=== PATIENT | male | born 1965 | race Caucasian/White ===

== ENCOUNTER 2016-06-01 22:18 | Inpatient (IN) | payer OTHER ==
[~2016-06-01] VITALS: Ht 182.9 cm; Wt 75.4 kg
[~2016-06-01 22:18] MED LIST: AMLO2.5T PO; CFTR1PB IV; FOLI1TAB9 PO; IBUP-1773 PO; IBUP-30 PO; LORA0.5T PO; NCT21TD TD; OXYC-465 PO; PANT40TA3 PO; SIMV10TA3 PO
--- OUTSIDE RECORDS SUMMARY | 2016-06-01 22:24 | XMS REPORT | Continuity of Care Document ---
Author Author [facility] Organization [facility] Address Unknown Phone Unavailable Care Team Providers Care Computer Application Developer Name Role Phone NO, LOCAL PHYSICIAN PCP Unavailable Insurance Providers Payer Name Policy Number Subscriber Name Relationship Self Pay Fin Licensed Occupational Therapist Review [id number] Mya Kim 17 Self / Same As Patient Advance Directives Directive Response Recorded Date/Time Advance Directives No 07/30/15 9:04pm Health Care Power of Geographic Information Systems Analyst No 07/30/15 9:04pm Organ Donor Yes 07/30/15 9:04pm Resuscitation Status Full Code 07/30/15 9:04pm Problems Active Problems Medical Problem Onset Date Status Alcohol dependence Unknown Acute Chest pain Unknown Acute Medications Current Home Medications Medication Dose Units Route Directions Days/Qty Instructions Start Date Folic Acid/Mv,Fe,Other Min 1 Each 2 Tab.chew Oral Daily 07/31/15 Simvastatin 10 Mg 10 Mg Oral Bedtime 30 08/02/15 Amlodipine Besylate 2.5 Mg 2.5 Mg Oral Twice A Day 60 08/02/15 Ibuprofen 600 Mg 600 Mg Oral Give Every 8 Hrs On Schedule 90 08/02/15 Oxycodone Hcl/Acetaminophen 1 Each 1 Tab Oral Every 12 Hours as needed for Pain 30 08/02/15 Lorazepam 0.5 Mg 0.5 Mg Oral Every 12 Hours as needed for Anxiety 60 08/02/15 Pantoprazole Sodium 40 Mg 40 Mg Oral Daily@0700 30 08/02/15 Nicotine 1 Each 21 Mg Transderm Daily@0900 30 08/02/15 Past Home Medications Medication Directions Ordered Status Ibuprofen 200 Mg Tablet, 600-800 Mg Oral Three Times A Day as needed for Pain 07/31/15 Discontinued Social History Social History Problem Response Recorded Date/Time Alcohol Use Regular Use 07/30/2015 9:04pm Recreational Drug Use N 5-6 drinks daily, amyl nitrate use 07/30/2015 9:04pm Recent Foreign Travel No 07/30/2015 9:04pm Recent Infectious Disease Exposure No 07/30/2015 9:04pm Hospitalization with Isolation Denies 08/02/2015 4:03pm Sexually Transmitted Disease No 07/30/2015 9:04pm HIV/AIDS No 07/30/2015 9:04pm Smoking Status Current Everyday Smoker 07/30/2015 9:04pm Query Response Start Date Stop Date Smoking Status Current Everyday Smoker Hospital Discharge Instructions Patient Instructions Physician Instructions Patient Instructions: Follow up with Dr Choi next week Follow up with Family Physician within one week No smoking Care Plan Patient Instructions:: Follow up with Dr Choi next weekFollow up with Family Physician within one weekNo smoking Plan of Care Discharge Date 08/02/15 3:10pm Instructions/Education Provided Chest Pain (DC) Prescriptions See Medication Section Functional Status Query Response Date Recorded Patient Orientation Person Place Time Situation Normal For Age August 02, 2015 4:03pm Comprehension Ability Understands Concepts August 02, 2015 8:40am Allergies, Adverse Reactions, Alerts No known allergies. Immunizations No immunization records. Vital Signs Acute Vital Signs Vital Response Date/Time Temperature (Fahrenheit) 97.7 degrees F (97.6 - 99.5) 08/02/2015 3:10pm Temperature (Calculated Celsius) 36.60414 degrees C (36.4 - 37.5) 08/02/2015 8:40am Temperature Source Tympanic 08/02/2015 3:10pm Pulse Rate (adult) 82 bpm (60 - 90) 08/02/2015 3:10pm Respiratory Rate 18 bpm (12 - 24) 08/02/2015 3:10pm O2 Sat by Pulse Oximetry 96 % (88 - 100) 08/02/2015 3:10pm Blood Pressure 129/73 mm Hg 08/02/2015 3:10pm Blood Pressure Mean 91 mm Hg 08/02/2015 12:00pm Pain Pain Intensity 0 08/02/2015 12:05pm Height (Feet) 6 feet 07/30/2015 9:04pm Height (Inches) 0.00 inches 07/30/2015 9:04pm Height (Calculated Centimeters) 182.847201 cm 07/30/2015 9:04pm Weight (Pounds) 168 pounds 08/02/2015 6:00am Weight (Ounces) 3.0 oz 08/02/2015 6:00am Weight (Calculated Grams) 90575.567 gm 08/02/2015 6:00am Weight (Calculated Kilograms) 76.109486 kilograms 08/02/2015 6:00am Calculated BMI 22.7 07/30/2015 9:04pm Results Laboratory Results Test Name Result Units Flags Reference Collection Date/Time Result Date/ Time Comments White Blood Count 10.6 10^3/uL 4.3-11.0 08/01/2015 4:35am 08/01/2015 4: 48am Red Blood Count 4.28 10^6/uL L 4.35-5.85 08/01/2015 4:35am 08/01/2015 4: 48am Hemoglobin 14.5 G/DL 13.3-17.7 08/01/2015 4:35am 08/01/2015 4:48am Hematocrit 41 % 40-54 08/01/2015 4:35am 08/01/2015 4:48am Mean Corpuscular Volume 95 FL 80-99 08/01/2015 4:35am 08/01/2015 4: 48am Mean Corpuscular Hemoglobin 34 PG 25-34 08/01/2015 4:35am 08/01/2015 4: 48am Mean Corpuscular Hemoglobin Concent 36 G/DL 32-36 08/01/2015 4:35am 08/2015 4:48am Red Cell Distribution Width 12.7 % 10.0-14.5 08/01/2015 4:35am 2015 4:48am Platelet Count 163 10^3/uL 130-400 08/01/2015 4:35am 08/01/2015 4:48am Mean Platelet Volume 10.5 FL H 7.4-10.4 08/01/2015 4:35am 08/01/2015 4: 48am Neutrophils (%) (Auto) 47 % 42-75 07/31/2015 5:05am 07/31/2015 5:45am Lymphocytes (%) (Auto) 43 % 12-44 07/31/2015 5:0507/31/2015 5:45am Monocytes (%) (Auto) 8 % 0-12 07/31/2015 5:05am 07/31/2015 5:45am Eosinophils (%) (Auto) 2 % 0-10 07/31/2015 5:05am 07/31/2015 5:45am Basophils (%) (Auto) 0 % 0-10 07/31/2015 5:05am 07/31/2015 5:45am Neutrophils # (Auto) 3.5 X 10^3 1.8-7.8 07/31/2015 5:05am 07/31/2015 5: 45am Lymphocytes # (Auto) 3.2 X 10^3 1.0-4.0 07/31/2015 5:05am 07/31/2015 5: 45am Monocytes # (Auto) 0.6 X 10^3 0.0-1.0 07/31/2015 5:05am 07/31/2015 5: 45am Eosinophils # (Auto) 0.1 10^3/uL 0.0-0.3 07/31/2015 5:05am 07/31/2015 5 :45am Basophils # (Auto) 0.0 10^3/uL 0.0-0.1 07/31/2015 5:05am 07/31/2015 5: 45am Erythrocyte Sedimentation Rate 6 MM/HR 0-30 07/30/2015 7:05pm 2015 7:50pm Prothrombin Time 12.1 SEC L 12.2-14.7 07/30/2015 7:05pm 07/30/2015 7: 27pm INR Comment 0.9 0.8-1.4 07/30/2015 7:05pm 07/30/2015 7:27pm INTERPRETIVE DATA SUGGESTED THERAPEUTIC RANGE FOR INR'S: VENOUS THROMBOSIS, PULMONARY EMBOLISM, OR PREVENTION OF SYSTEMIC EMBOLISM (EG. IN ATRIAL FIBRILLATION): 2.0 - 3.0 MECHANICAL PROSTHETIC HEART VALVES: 2.5 - 3.5* *NOTE: INR'S UP TO 4.5 MAY BE NECESSARY IN SELECTED GROUPS OF HIGH RISK PATIENTS. [employer] CONSENSUS CONFERENCE ON ANTITHROMBOTIC THERAPY (2000). Activated Partial Thromboplast Time 26 SEC 24-35 07/30/2015 7:05pm 06/2015 7:27pm D-Dimer < 0.27 UG/ML 0.00-0.49 07/30/2015 7:05pm 07/30/2015 7:31pm Sodium Level 139 MMOL/L 135-145 08/01/2015 4:35am 08/01/2015 5:34am Potassium Level 3.9 MMOL/L 3.6-5.0 08/01/2015 4:35am 08/01/2015 5:34am Chloride Level 106 MMOL/L 98-107 08/01/2015 4:35am 08/01/2015 5:34am Carbon Dioxide Level 25 MMOL/L 21-32 08/01/2015 4:35am 08/01/2015 5: 34am Anion Gap 8 MMOL/L 5-14 08/01/2015 4:35am 08/01/2015 5:34am Blood Urea Nitrogen 11 MG/DL 7-18 08/01/2015 4:35am 08/01/2015 5:34am Creatinine 0.81 MG/DL 0.60-1.30 08/01/2015 4:35am 08/01/2015 5:34am BUN/Creatinine Ratio 14 08/01/2015 4:35am 08/01/2015 5:34am Estimat Glomerular Filtration Rate > 60 08/01/2015 4:35am 2015 5:34am GFR INTERPRETIVE DATA UNITS FOR ESTIMATED GFR (eGFR): mL/min/1.73 M2 REFERENCE RANGE FOR ESTIMATED GFR (eGFR) eGFR NORMAL eGFR >60 MODERATELY DECREASED eGFR 30-59 SEVERLY DECREASED eGFR 15-29 KIDNEY FAILURE <15 (OR DIALYSIS) Glucose Level 112 MG/DL H 70-105 08/01/2015 4:35am 08/01/2015 5:34am Calcium Level 8.9 MG/DL 8.5-10.1 08/01/2015 4:35am 08/01/2015 5:34am Magnesium Level 2.2 MG/DL 1.8-2.4 07/31/2015 5:0507/31/2015 6:04am Total Bilirubin 1.0 MG/DL 0.1-1.0 07/31/2015 5:05am 07/31/2015 6:04am Alkaline Phosphatase 62 U/L 40-136 07/31/2015 5:05am 07/31/2015 6:04am Aspartate Amino Transf (AST/SGOT) 33 U/L 5-34 07/31/2015 5:05am 2015 6:04am Alanine Aminotransferase (ALT/SGPT) 29 U/L 0-55 07/31/2015 5:05am 07/30 6:04am Troponin I 1.36 NG/ML CH <0.30 07/31/2015 5:05am 07/31/2015 6:33am RESULT CALLED TO DANIELA AT 0631. RESULTS READ BACK: YES. Troponin I < 0.30 NG/ML <0.30 07/30/2015 7:05pm 07/30/2015 7:45pm Myoglobin 36.7 NG/ML 10.0-92.0 07/30/2015 7:05pm 07/30/2015 7:45pm Total Protein 6.2 G/DL L 6.4-8.2 07/31/2015 5:05am 07/31/2015 6:04am Albumin 3.9 G/DL 3.2-4.5 07/31/2015 5:05am 07/31/2015 6:04am Triglycerides Level 122 MG/DL <150 07/31/2015 5:05am 07/31/2015 6:04am Cholesterol Level 158 MG/DL < 200 07/31/2015 5:05am 07/31/2015 6:04am HDL Cholesterol 58 MG/DL 40-60 07/31/2015 5:05am 07/31/2015 6:04am LDL Cholesterol Direct 88 MG/DL 1-129 07/31/2015 5:05am 07/31/2015 6: 04am VLDL Cholesterol 24 MG/DL 5-40 07/31/2015 5:05am 07/31/2015 6:04am Lipase 42 U/L 8-78 07/30/2015 7:05pm 07/30/2015 7:45pm Thyroid Stimulating Hormone (TSH) 2.98 UIU/ML 0.35-4.94 07/31/2015 5: 05am 07/31/2015 6:37am C-Reactive Protein High Sensitivity 3.39 MG/DL H 0.00-0.50 07/30/2015 7: 05pm 07/30/2015 7:46pm Procedures Procedure Status Date Provider(s) Tracing only of electrocardiogram Completed 07/30/15 JEANE LIMA MD Tracing only of electrocardiogram Completed 07/30/15 JEANE LIMA MD Tracing only of electrocardiogram Completed 07/30/15 FAZAL CHOI MD [facility] Color Doppler echocardiography Active 07/30/[facility] Tracing only of electrocardiogram Completed 07/31/15 FAZAL CHOI MD [facility] Encounters Encounter Location Arrival/Admit Date Discharge/Depart Date Attending Provider Departed [facility] 07/30/15 7:26pm 3:10pm FAZAL CHOI [facility] Recent Diagnosis Alcohol dependence Chest pain
[2016-06-01] MEDS ORDERED: NS IV 1000 ML 1,000 ML ONE (22:44)
[2016-06-01 22:49] LABS: BASOPHILS % (AUTO) 0 % (0-10); EOSINOPHILS # (AUTO) 0.1 10^3/uL (0.0-0.3); EOSINOPHILS % (AUTO) 1 % (0-10); LYMPHOCYTES # (AUTO) 2.6 X 10^3 (1.0-4.0); LYMPHOCYTES % (AUTO) 17 % (12-44); MEAN CORPUSCULAR HEMOGLOBIN 33 PG (25-34); MEAN CORPUSCULAR HGB CONC 35 G/DL (32-36); MEAN CORPUSCULAR VOLUME 94 FL (80-99); MONOCYTES # (AUTO) 1.6 X 10^3 (0.0-1.0); MONOCYTES % (AUTO) 10 % (0-12); NEUTROPHILS # (AUTO) 11.4 X 10^3 (1.8-7.8); NEUTROPHILS % (AUTO) 72 % (42-75); PLATELET COUNT 387 10^3/uL (130-400); RED CELL DISTRIBUTION WIDTH 12.8 % (10.0-14.5); WHITE BLOOD COUNT 15.7 10^3/uL (4.3-11.0)
[2016-06-01] MEDS ORDERED: NS IV 1000 ML 1,000 ML IV ONE (22:53)
[2016-06-01 22:58] LABS: PROTHROMBIN TIME PATIENT 12.9 SEC (12.2-14.7)
[2016-06-01] MEDS ORDERED: fentaNYL INJECTION 100 MCG/2 ML AMP IVP ONE (23:00)
[2016-06-01 23:03] LABS: BAND NEUTROPHILS 4 %; BASOPHILS % (MANUAL) 0 %; EOSINOPHILS % (MANUAL) 0 %; LYMPHOCYTES % (MANUAL) 21 %; NEUTROPHILS % (MANUAL) 65 %
[2016-06-01 23:07] LABS: ALANINE AMINOTRANSFERASE 37 U/L (0-55); ALBUMIN 3.9 G/DL (3.2-4.5); ANION GAP 13 MMOL/L (5-14); ASPARTATE AMINO TRANSFERASE 71 U/L (5-34); BILIRUBIN,TOTAL 0.7 MG/DL (0.1-1.0); BLOOD UREA NITROGEN 13 MG/DL (7-18); BUN/CREATININE RATIO 15; CALCIUM 9.3 MG/DL (8.5-10.1); CARBON DIOXIDE 21 MMOL/L (21-32); CHLORIDE 105 MMOL/L (98-107); CREATININE SERUM 0.87 MG/DL (0.60-1.30); GFR ESTIMATED > 60; GLUCOSE 116 MG/DL (70-105); POTASSIUM 3.9 MMOL/L (3.6-5.0); SODIUM 139 MMOL/L (135-145)
[2016-06-01 23:13] LABS: MYOGLOBIN SERUM 28.8 NG/ML (10.0-92.0)
--- NOTE | 2016-06-01 23:19 | ED Chest Pain ---
General Chief Complaint: Chest Pain Stated Complaint: NORMAN VELASQUEZ Nursing Triage Note: patient reports chest pain starting at 0330, pain goes to shoulders and jaws. Nursing Sepsis Screen: No Definite Risk Source: patient Exam Limitations: no limitations History of Present Illness Time seen by provider: 22:25 Initial Comments This 50-year-old gentleman presents to the emergency room with complaints of pain in the center of his chest that radiates to his back, neck, and jaw. Pain has actually been intermittent for a couple of weeks but more intense over the last 24 hours. The pain woke him up at about 03:30. The pain is exacerbated by palpation and inspiration. He has associated dyspnea on exertion. Review of his chart reveals a cardiac catheterization in July 2015 demonstrating mild coronary artery disease with up to 40 percent stenosis of the LAD. Ejection fraction was 60 percent. Patient is a smoker and drinks the equivalent of a bottle of wine daily. He denies any other drug use. Patient is rather anxious. Upon my entry into the room he is experiencing a hypotensive diaphoretic episode with the start of his IV. This seemed to be a vasovagal response to the IV start. He took ibuprofen at home which was not helpful. Allergies and Home Medications Allergies Coded Allergies: No Known Drug Allergies (Unverified , 07/30/15) Home Medications Amlodipine Besylate 2.5 Mg Tablet #60 2.5 MG PO BID Prescribed by: FAZAL CHOI on 08/02/15 1313 Ceftriaxone Sod 1 Gm/Vial Soln #5 1 GM IV DAILY Prescribed by: ORI FITCH on 08/28/15 1358 Folic Acid/Mv,Fe,Other Min 1 Each Tab.chew 2 TAB.CHEW PO DAILY (Reported) Ibuprofen 600 Mg Tablet #90 600 MG PO Q8HR Prescribed by: FAZAL CHOI on 08/02/15 1313 Lorazepam 0.5 Mg Tablet #60 0.5 MG PO Q12H PRN PRN ANXIETY Prescribed by: FAZAL CHOI on 08/02/15 1313 Nicotine 1 Each Patch.td24 #30 21 MG TD DAILY@0900 Prescribed by: FAZAL CHOI on 08/02/15 1317 Oxycodone HCl/Acetaminophen 1 Each Tablet #30 1 TAB PO Q12H PRN PRN PAIN Prescribed by: FAZAL CHOI on 08/02/15 1313 Pantoprazole Sodium 40 Mg Tablet.dr #30 40 MG PO DAILY@0700 Prescribed by: FAZAL CHOI on 08/02/15 1313 Simvastatin 10 Mg Tablet #30 10 MG PO HS Prescribed by: FAZAL CHOI on 08/02/15 1313 Review of Systems Constitutional: no symptoms reported EENTM: No Symptoms Reported Respiratory: See HPI Cardiovascular: See HPI Gastrointestinal: No Symptoms Reported Genitourinary: No Symptoms Reported Musculoskeletal: no symptoms reported Skin: no symptoms reported Psychiatric/Neurological: See HPI Endocrine: No Symptoms Reported Hematologic/Lymphatic: No Symptoms Reported Past Doclsmr-Czkysq-Jazjet Hx Patient Social History Alcohol Use: Denies Use Recreational Drug Use: No Smoking Status: Current Everyday Smoker Type Used: Cigarettes Recent Foreign Travel: No Contact w/Someone Who Travel: No Recent Infectious Disease Expo: No Recent Hopitalizations: No Seasonal Allergies Seasonal Allergies: No Surgeries HX Surgeries: Yes Surgeries: Cardiac, Orthopedic Respiratory Hx Respiratory Disorders: Yes (tobaccoism) Cardiovascular Hx Cardiac Disorders: Yes Cardiac Disorders: Coronary Artery Disease, Hypertension Neurological Hx Neurological Disorders: No Reproductive System Hx Reproductive Disorders: No Sexually Transmitted Disease: No HIV/AIDS: No Genitourinary Hx Genitourinary Disorders: No Gastrointestinal Hx Gastrointestinal Disorders: No Musculoskeletal Hx Musculoskeletal Disorders: No Endocrine Hx Endocrine Disorders: No HEENT HX ENT Disorders: No Cancer Hx Cancer: No Psychosocial Hx Psychiatric Problems: Yes (daily alcohol use) Behavioral Health Disorders: Anxiety Integumentary HX Skin/Integumentary Disorder: No Blood Transfusions Hx Blood Disorders: No Adverse Reaction to a Blood Tr: No Family Medical History Significant Family History: No Pertinent Family Hx Family Medial History: FH: cirrhosis Physical Exam Vital Signs Vital Sign - Last 12Hours 06/01/16 22:33 Temp 97.4 Pulse 100 Resp 24 B/P 143/102 Pulse Ox 96 O2 Delivery Room Air Capillary Refill : Less Than 3 Seconds General Appearance: WD/WN Mild Distress HEENT: PERRL/EOMI Normal ENT Inspection Neck: Normal Inspection Respiratory: Lungs Clear Normal Breath Sounds No Accessory Muscle Use No Respiratory Distress Other (left upper and lateral chest wall tender to palpation) Cardiovascular: Regular Rate, Rhythm No Edema No Murmur Gastrointestinal: Normal Bowel Sounds Non Tender Soft Extremity: Normal Inspection Non Tender No Pedal Edema Neurologic/Psychiatric: Alert Oriented x3 No 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 Other (anxious) Skin: Normal Color Diaphoresis Progress/Results/Core Measures Results/Orders Lab Results Laboratory Tests Test 06/01/16 22:40 06/02/16 00:40 Range/Units Activated Partial Thromboplast Time 29 24-35 SEC Alanine Aminotransferase (ALT/SGPT) 37 0-55 U/L Albumin 3.9 3.2-4.5 G/DL Alkaline Phosphatase 91 40-136 U/L Anion Gap 13 5-14 MMOL/L Aspartate Amino Transf (AST/SGOT) 71 H 5-34 U/L BUN/Creatinine Ratio 15 Band Neutrophils 4 % Basophils # (Auto) 0.0 0.0-0.1 10^3/uL Basophils % (Manual) 0 % Basophils (%) (Auto) 0 0-10 % Blood Morphology Comment NORMAL Blood Urea Nitrogen 13 7-18 MG/DL Calcium Level 9.3 8.5-10.1 MG/DL Carbon Dioxide Level 21 21-32 MMOL/L Chloride Level 105 98-107 MMOL/L Creatinine 0.87 0.60-1.30 MG/DL Eosinophils # (Auto) 0.1 0.0-0.3 10^3/uL Eosinophils % (Manual) 0 % Eosinophils (%) (Auto) 1 0-10 % Estimat Glomerular Filtration Rate > 60 Glucose Level 116 H 70-105 MG/DL Hematocrit 42 40-54 % Hemoglobin 14.9 13.3-17.7 G/DL INR Comment 1.0 0.8-1.4 Lymphocytes # (Auto) 2.6 1.0-4.0 X 10^3 Lymphocytes % (Manual) 21 % Lymphocytes (%) (Auto) 17 12-44 % Magnesium Level 2.0 1.8-2.4 MG/DL Mean Corpuscular Hemoglobin 33 25-34 PG Mean Corpuscular Hemoglobin Concent 35 32-36 G/DL Mean Corpuscular Volume 94 80-99 FL Mean Platelet Volume 9.0 7.4-10.4 FL Monocytes # (Auto) 1.6 H 0.0-1.0 X 10^3 Monocytes % (Manual) 10 % Monocytes (%) (Auto) 10 0-12 % Myoglobin 28.8 10.0-92.0 NG/ML Neutrophils # (Auto) 11.4 H 1.8-7.8 X 10^3 Neutrophils % (Manual) 65 % Neutrophils (%) (Auto) 72 42-75 % Platelet Count 387 130-400 10^3/uL Potassium Level 3.9 3.6-5.0 MMOL/L Prothrombin Time 12.9 12.2-14.7 SEC Red Blood Count 4.50 4.35-5.85 10^6/uL Red Cell Distribution Width 12.8 10.0-14.5 % Serum Alcohol < 10 <10 MG/DL Sodium Level 139 135-145 MMOL/L Total Bilirubin 0.7 0.1-1.0 MG/DL Total Protein 7.0 6.4-8.2 G/DL Troponin I < 0.30 <0.30 NG/ML White Blood Count 15.7 H 4.3-11.0 10^3/uL My Orders Orders-JEANE LIMA MD Ns Iv 1000 Ml (Sodium Chloride 0.9%) (06/01/16 22:44) Ct Angio Chest W (06/01/16 22:51) Fentanyl Injection (Sublimaze Injection (06/01/16 23:00) Alcohol (06/01/16 22:53) Drug Screen Stat (Urine) (06/01/16 22:53) Ns Iv 1000 Ml (Sodium Chloride 0.9%) (06/01/16 22:53) Iohexol Injection (Omnipaque 350 Mg/Ml 1 (06/01/16 23:30) Ns (Ivpb) (Sodium Chloride 0.9% Ivpb Bag (06/01/16 23:30) Ketorolac Injection (Toradol Injection) (06/02/16 00:15) Levofloxacin 750 Mg/150 Ml Iv (Levaquin (06/02/16 00:15) Blood Culture (06/02/16 00:28) Lactic Acid Analyzer (06/02/16 00:30) Medications Given in ED Current Medications Medications Dose Ordered Sig/Unique Route Start Time Stop Time Status Last Admin Dose Admin Fentanyl Citrate 50 mcg ONCE ONCE IVP 06/01/16 23:00 06/01/16 23:01 DC 06/01/16 22:59 50 MCG Iohexol 150 ml ONCE ONCE IV 06/01/16 23:30 06/01/16 23:31 DC 06/01/16 23:32 125 ML Ketorolac Tromethamine 30 mg 30 mg ONCE ONCE IVP 06/02/16 00:15 06/02/16 00:16 DC 06/02/16 00:20 30 MG Levofloxacin/ Dextrose 150 ml @ 100 mls/hr ONCE ONCE IV 06/02/16 00:15 06/02/16 01:44 06/02/16 00:46 100 MLS/HR Sodium Chloride 100 ml ONCE ONCE IV 06/01/16 23:30 06/01/16 23:31 DC 06/01/16 23:32 80 ML Sodium Chloride 1,000 ml STK-MED ONCE .ROUTE 06/01/16 22:44 06/01/16 22:46 DC 06/01/16 22:48 Vital Signs/I&O Vital Sign - Last 12Hours 06/01/16 22:33 Temp 97.4 Pulse 100 Resp 24 B/P 143/102 Pulse Ox 96 O2 Delivery Room Air Blood Pressure Mean: 116 Progress Note : Time: 00:31 Progress Note fentanyl was initially given for pain. Patient was sent to CT for angiogram of the chest. There was concern for pulmonary embolism or aortic pathology given the pleuritic nature of his pain and pain in his back. A left lower lobe pneumonia with effusion was noted on the CT images. Plan at that point was to administer a dose of Levaquin and discharged home as vital signs were stable. However, the Stat Rad reading of the CT scan also noted a pericardial effusion. This prompted a call to Dr. Choi who requested admission. Administration of Levaquin was promptly halted and blood cultures were collected along with a lactic acid. Toradol was administered for further pain management. ECG Initial ECG Impression Date: Jun 01, 2016 Initial ECG Impression Time: 22:25 Initial ECG Rate: 99 Initial ECG Rhythm: S.Tach Initial ECG Intervals: Normal Comment mild sinus tachycardia with no ST elevation or depression. No significant interval or axis changes. Diagnostic Imaging Diagonstic Imaging: Xray Plain Films/CT/US/NM/MRI: chest Comments chest x-ray viewed by me. Report not yet available. There are emphysematous changes. Left lower lobe atelectasis with effusion and/or infiltrate. Diagonstic Imaging: CT Plain Films/CT/US/NM/MRI: chest Comments CT angiogram of the chest viewed by me and Stat Rad report reviewed. No pulmonary emboli. Moderate pericardial effusion measuring 1.8 cm suggestive of peripheral enhancement suggesting complexity perhaps infectious/inflammatory. Skin there is small left trace right pleural effusion with subjacent compressive consolidative changes. Question coexistent infection. Mid lower lung linear scarring/atelectasis remote appearing left rib fracture. Departure Communication Communication Case was reviewed with Dr. De Souza who is agreeable to admission for treatment of pneumonia and observation of the cardiac status. Communication/Consulting Case was reviewed with Dr. Choi who would like to patient admitted. He requests scheduled ibuprofen and admission to the internal medicine service. Impression Impression: Primary Impression: Left lower lobe pneumonia Qualified Code: J18.1 - Lobar pneumonia, unspecified organism Additional Impressions: Atypical chest pain Pericardial effusion Alcohol dependence Qualified Code: F10.29 - Alcohol dependence with unspecified alcohol-induced disorder Disposition: ADMITTED INPATIENT Condition: Improved Decision to Admit Reason: Admit from ER (General) Decision to Admit/Date: Jun 02, 2016 Time/Decision to Admit Time: 12:30 Departure-Patient Inst. Referrals: NO,LOCAL PHYSICIAN (PCP/Family) Primary Care Physician JEANE LIMA MD Jun 01, 2016 23:19
[2016-06-01] MEDS ORDERED: NS 100 ML (IVPB) BAG IV ONE (23:30)
[2016-06-01] MEDS ORDERED: IOHEXOL 350 MG/ML 150 ML (OMNIPAQUE 350) VIAL IV ONE (23:30)
[2016-06-02] MEDS ORDERED: KETOROLAC 30 MG/ML VIAL IVP ONE (00:15)
[2016-06-02] MEDS: LEVOFLOXACIN 750 MG/150 ML IV 150 ML IV ONE ×2 (00:20→00:46)
[2016-06-02 01:37] VITALS: BP 125/77
[2016-06-02] MEDS ORDERED: HYDROcodone/APAP 5 MG/325 MG (LORTAB) TAB ONE (01:41)
[2016-06-02] MEDS ORDERED: RT-ALBUTEROL SULF 2.5 MG/3 ML PRE-MIX VIAL INH PRN (03:00)
[2016-06-02] MEDS: IBUPROFEN 600 MG (MOTRIN) TAB PO SCH ×4 (03:54→18:49)
[2016-06-02] MEDS ORDERED: LORazepam INJ 2 MG/ML (ATIVAN) VIAL IM PRN (04:00)
[2016-06-02] MEDS ORDERED: D5 1/2 NS 1000 ML IV SOLUTION 1,000 ML IV PRN (04:00)
[2016-06-02] MEDS ORDERED: ONDANSETRON 4 MG/2 ML (SDV) Z0FRAN IV PRN ×2 (04:00→04:15)
[2016-06-02] MEDS ORDERED: LORazepam INJ 2 MG/ML (ATIVAN) VIAL IV PRN ×4 (04:00→04:15)
[2016-06-02] MEDS ORDERED: LORazepam 0.5 MG (ATIVAN) TABLET PO PRN ×2 (04:00→11:15)
[2016-06-02] MEDS ORDERED: ANTACID SUSP 30 ML UDC (MYLANTA) PO PRN (04:15)
[2016-06-02] MEDS ORDERED: LORazepam 1 MG (ATIVAN) TAB PO PRN ×3 (04:15)
[2016-06-02] MEDS ORDERED: SENNA W/DOCUSATE (SENOKOT S) TABLET PO PRN (04:15)
[2016-06-02 04:39] VITALS: BP 116/71
[2016-06-02 05:02] LABS: BASOPHILS % (AUTO) 0 % (0-10); EOSINOPHILS % (AUTO) 0 % (0-10); LYMPHOCYTES # (AUTO) 1.5 X 10^3 (1.0-4.0); LYMPHOCYTES % (AUTO) 11 % (12-44); MEAN CORPUSCULAR HEMOGLOBIN 33 PG (25-34); MEAN CORPUSCULAR HGB CONC 35 G/DL (32-36); MEAN CORPUSCULAR VOLUME 96 FL (80-99); MEAN PLATELET VOLUME 9.3 FL (7.4-10.4); MONOCYTES # (AUTO) 1.3 X 10^3 (0.0-1.0); MONOCYTES % (AUTO) 10 % (0-12); NEUTROPHILS % (AUTO) 79 % (42-75); PLATELET COUNT 328 10^3/uL (130-400); RED BLOOD COUNT 4.09 10^6/uL (4.35-5.85); RED CELL DISTRIBUTION WIDTH 12.8 % (10.0-14.5); WHITE BLOOD COUNT 13.9 10^3/uL (4.3-11.0)
[2016-06-02 05:22] LABS: ALANINE AMINOTRANSFERASE 42 U/L (0-55); ALBUMIN 3.6 G/DL (3.2-4.5); ANION GAP 11 MMOL/L (5-14); ASPARTATE AMINO TRANSFERASE 62 U/L (5-34); BILIRUBIN,TOTAL 0.7 MG/DL (0.1-1.0); BLOOD UREA NITROGEN 10 MG/DL (7-18); BUN/CREATININE RATIO 13; CALCIUM 8.7 MG/DL (8.5-10.1); CARBON DIOXIDE 20 MMOL/L (21-32); CHLORIDE 108 MMOL/L (98-107); CREATININE SERUM 0.79 MG/DL (0.60-1.30); GFR ESTIMATED > 60; GLUCOSE 143 MG/DL (70-105); POTASSIUM 4.1 MMOL/L (3.6-5.0); SODIUM 139 MMOL/L (135-145); TOTAL PROTEIN 6.3 G/DL (6.4-8.2)
[2016-06-02 05:33] LABS: TROPONIN I < 0.30 NG/ML (<0.30)
[2016-06-02 05:57] LABS: CHOLESTEROL 130 MG/DL (< 200); DIRECT LDL 61 MG/DL (1-129); TRIGLYCERIDES 61 MG/DL (<150); VLDL CHOLESTEROL 12 MG/DL (5-40)
[2016-06-02] MEDS: MULTIVIT W/MINERALS TAB (THERAGRAN M) PO SCH (06:20)
[2016-06-02] MEDS: PANTOPRAZOLE 40 MG (PROTONIX) TAB PO SCH (06:20)
[2016-06-02] MEDS: THIAMINE 100 MG (VITAMIN B-1) TAB PO SCH (06:20)
--- NOTE | 2016-06-02 07:02 | Diagnostic Imaging Report ---
INDICATION: Chest pain. FINDINGS: There is minimal linear density in the left lung base with blunting of left costophrenic angle. Left lung is otherwise clear. The right lung is clear. Right costophrenic angle is sharp. The heart is not enlarged. No hilar adenopathy. No pneumothorax. IMPRESSION: Finding consistent with small left basilar pleural effusion with left basilar atelectasis and/or infiltrate. Dictated by: Dictated on workstation # [id number]
[2016-06-02] MEDS ORDERED: FLU TRIvalent (5 YOA+) 2016-17 (AFLURIA) 0.5 ML IM ONE (07:15)
--- NOTE | 2016-06-02 07:42 | Diagnostic Imaging Report ---
PROCEDURE: CT angiography of the chest with contrast. TECHNIQUE: Multiple contiguous axial images were obtained through the chest after uneventful bolus administration of intravenous contrast. Reconstructed CTA MIP acquisitions were also performed. INDICATION: Chest pain. FINDINGS: Good opacification of the aorta and pulmonary arteries. No evidence of aortic aneurysm or dissection. There are no filling defects to indicate pulmonary emboli. Small bilateral pleural effusions are present. There is mild atelectasis in the left lung base. There is considerable pericardial effusion measuring upwards of the 1.5 cm. No mediastinal or hilar adenopathy of pathologic size. No pneumothorax. No bony abnormalities. There is rather marked hepatomegaly with hepatic steatosis. The spleen is not enlarged. IMPRESSION: 1. No evidence of pulmonary emboli. 2. There is considerable pericardial effusion raising question of pericarditis. 3. Small pleural effusions with mild basilar atelectasis. 4. Hepatic steatosis with rather marked hepatomegaly. These findings are in agreement with preliminary report. Dictated by: Dictated on workstation # [id number]
[2016-06-02 08:00] VITALS: BP 121/78
[2016-06-02] MEDS ORDERED: LORA-404 PO (09:30)
[2016-06-02] MEDS ORDERED: IBUP-2055 PO (09:30)
[2016-06-02] MEDS: ASPIRIN 81 MG CHEW (CHILDREN'S ASA) PO SCH (09:34)
[2016-06-02] MEDS: HYDROcodone/APAP 5 MG/325 MG (LORTAB) TAB PO PRN ×2 (09:34→21:00)
[2016-06-02] MEDS: amLODIPine 2.5MG (NORVASC) TAB PO SCH ×2 (09:34→20:59)
[2016-06-02] MEDS: FOLIC ACID 1 MG TAB PO SCH (09:34)
[2016-06-02] MEDS: MAGNESIUM OXIDE (MAG-OX)400 MG TAB PO SCH ×2 (09:34→20:59)
--- NOTE | 2016-06-02 09:57 | Consultation-Cardiology ---
HPI-Cardiology Cardiology Consultation: Date of Consultation 06/02/16 Date of Admission 06-01-16 Attending Physician Jewels De Souza DO Admitting Physician Beronica,Local Physician Consulting Physician Kike Choi MD HPI: Chief Complaint: Chest pain Dyspnea Mr. Kim is a 50 year old male admitted to 425 from the ED. He reports progressive dyspnea over the course of the last few days. He states he has been having mid-sternal chest pain which radiates through his back and into his jaw bilat. It is a sharp pain. He also reports chest discomfort with deep breaths. He states this discomfort has been present for a few weeks. He does not report any fever, chills, nausea, vomiting or malaise. No c/o LE edema. He does smoke cigs and occ marijuana use. He states he has not been taking his blood pressure medication d/t running out, but he has been taking his sisters Amlodipine 10mg 1/2 tablet twice a day, but he feels his blood pressure has been running high as well. Review of Systems-Cardiology Review of Systems Constitutional: As described under HPI Eyes: No blurred vision, No drainage, No pain, No vision change Ears/Nose/Throat: No ear discharge, No ear pain, No nasal drainage, No ulcerations Respiratory: As described under HPI Cardiovascular: As described under HPI Gastrointestinal: No constipation, No diarrhea, No nausea, No vomiting, No stool coloration changes Genitourinary: No dysuria, No discharge, No frequency, No hematuria, No urgency Skin: No rash, No skin related problems, No ulcerations Psychiatric/Neurological: No anxiety, No depression, No focal weakness, No seizure, No syncope Hematologic: No bleeding abnormalities NKA-Blapyq-Cvkhnf Hx Patient Social History Alcohol Use: Regular Use Recreational Drug Use: No Smoking Status: Current Everyday Smoker Type Used: Cigarettes Recent Foreign Travel: No Recent Infectious Disease Expo: No Hospitalization with Isolation: Denies Physical Abuse Screen: No Sexual Abuse: No Past Medical History PMH As described under Assessment. Family Medical History Family Medical History: No family history of early CAD or SCD Family History: FH: cirrhosis Allergies and Home Medications Allergies Coded Allergies: No Known Drug Allergies (Unverified , 07/30/15) Home Medications Ibuprofen 200 Mg Tablet 600 MG PO Q8H PRN PRN INFLAMMATION (Reported) Lorazepam 0.5 Mg Tablet 0.5 MG PO DAILY PRN PRN ANXIETY (Reported) Physical Exam-Cardiology Physical Exam Vital Signs/I&O Vital Sign - Last 12Hours 06/02/16 06/02/16 06/02/16 06/02/16 01:22 01:37 01:55 01:58 Temp 98.4 Pulse 84 85 82 Resp 16 18 B/P 125/77 Pulse Ox 95 97 O2 Delivery Room Air Room Air 06/02/16 06/02/16 06/02/16 06/02/16 02:50 04:39 07:00 08:00 Temp 97.7 98.2 Pulse 81 75 79 Resp 20 20 B/P 116/71 121/78 Pulse Ox 97 97 94 O2 Delivery Room Air Room Air Capillary Refill : Less Than 3 Seconds Constitutional: appears stated ageNo apparent distress, well-developed well- nourished HEENT: PERRLNo discharge, hearing is well preserved oral hygience is goodNo ulceration, No xanthelasmas are seen Neck: No carotid bruit, carotid pulses are 2 + bilaterally Respiratory: No accessory muscle use, other (diminished bases bilat; poor inspiratory effort d/t c/o discomfort with deep breathing) Cardiovascular: regular rate-rhythmNo JVD, S1 and S2 Gastrointestinal: No tender, soft roundNo spleenomegaly Rectal: deferred Extremities: No clubbing, No cyanosis, No significant edema Neurologic/Psychiatric: alert oriented x 3 power is 5/5 both on sides Skin: No rash, No ulcerations Data Review Labs Laboratory Tests 06/01/16 22:40: Activated Partial Thromboplast Time 29, Alanine Aminotransferase (ALT/SGPT) 37, Albumin 3.9, Alkaline Phosphatase 91, Anion Gap 13, Aspartate Amino Transf (AST/ SGOT) 71H, BUN/Creatinine Ratio 15, Band Neutrophils 4, Basophils # (Auto) 0.0, Basophils % (Manual) 0, Basophils (%) (Auto) 0, Blood Morphology Comment NORMAL , Blood Urea Nitrogen 13, Calcium Level 9.3, Carbon Dioxide Level 21, Chloride Level 105, Creatinine 0.87, Eosinophils # (Auto) 0.1, Eosinophils % (Manual) 0, Eosinophils (%) (Auto) 1, Estimat Glomerular Filtration Rate > 60, Glucose Level 116H, Hematocrit 42, Hemoglobin 14.9, INR Comment 1.0, Lymphocytes # (Auto ) 2.6, Lymphocytes % (Manual) 21, Lymphocytes (%) (Auto) 17, Magnesium Level 2.0 , Mean Corpuscular Hemoglobin 33, Mean Corpuscular Hemoglobin Concent 35, Mean Corpuscular Volume 94, Mean Platelet Volume 9.0, Monocytes # (Auto) 1.6H, Monocytes % (Manual) 10, Monocytes (%) (Auto) 10, Myoglobin 28.8, Neutrophils # (Auto) 11.4H, Neutrophils % (Manual) 65, Neutrophils (%) (Auto) 72, Platelet Count 387, Potassium Level 3.9, Prothrombin Time 12.9, Red Blood Count 4.50, Red Cell Distribution Width 12.8, Serum Alcohol < 10, Sodium Level 139, Total Bilirubin 0.7, Total Protein 7.0, Troponin I < 0.30, White Blood Count 15.7H 06/02/16 00:40: Lactic Acid Level 0.99 06/02/16 04:33: Alanine Aminotransferase (ALT/SGPT) 42, Albumin 3.6, Alkaline Phosphatase 87, Anion Gap 11, Aspartate Amino Transf (AST/SGOT) 62H, BUN/Creatinine Ratio 13, Basophils # (Auto) 0.0, Basophils (%) (Auto) 0, Blood Urea Nitrogen 10, Calcium Level 8.7, Carbon Dioxide Level 20L, Chloride Level 108H, Creatinine 0.79, Eosinophils # (Auto) 0.0, Eosinophils (%) (Auto) 0, Estimat Glomerular Filtration Rate > 60, Glucose Level 143H, Hematocrit 39L, Hemoglobin 13.5, Lymphocytes # (Auto) 1.5, Lymphocytes (%) (Auto) 11L, Mean Corpuscular Hemoglobin 33, Mean Corpuscular Hemoglobin Concent 35, Mean Corpuscular Volume 96, Mean Platelet Volume 9.3, Monocytes # (Auto) 1.3H, Monocytes (%) (Auto) 10, Neutrophils # (Auto) 11.0H, Neutrophils (%) (Auto) 79H, Platelet Count 328, Potassium Level 4.1, Red Blood Count 4.09L, Red Cell Distribution Width 12.8, Sodium Level 139, Total Bilirubin 0.7, Total Protein 6.3L, Troponin I < 0.30, White Blood Count 13.9H, Cholesterol Level 130, HDL Cholesterol 57, LDL Cholesterol Direct 61, Triglycerides Level 61, VLDL Cholesterol 12 Radiology NAME: MYA KIM [facility] REC#: [id number] PT STATUS: ADM IN : 1965 PHYSICIAN: JEANE LIMA MD ADMIT DATE: 06/02/16 Draft Date of Exam:06/01/16 CT ANGIO CHEST W PROCEDURE: CT angiography of the chest with contrast. TECHNIQUE: Multiple contiguous axial images were obtained through the chest after uneventful bolus administration of intravenous contrast. Reconstructed CTA MIP acquisitions were also performed. INDICATION: Chest pain. FINDINGS: Good opacification of the aorta and pulmonary arteries. No evidence of aortic aneurysm or dissection. There are no filling defects to indicate pulmonary emboli. Small bilateral pleural effusions are present. There is mild atelectasis in the left lung base. There is considerable pericardial effusion measuring upwards of the 1.5 cm. No mediastinal or hilar adenopathy of pathologic size. No pneumothorax. No bony abnormalities. There is rather marked hepatomegaly with hepatic steatosis. The spleen is not enlarged. IMPRESSION: 1. No evidence of pulmonary emboli. 2. There is considerable pericardial effusion raising question of pericarditis. 3. Small pleural effusions with mild basilar atelectasis. 4. Hepatic steatosis with rather marked hepatomegaly. These findings are in agreement with preliminary report. Dictated on workstation # [id number] Dict: 06/02/1630 Trans: 06/02/16 0741 [facility] [id number] Interpreted by: KENRICK SEO MD Electronically signed by: NAME: MYA K[facility] REC#: [id number] PT STATUS: ADM IN : 1965 PHYSICIAN: ALLISON COTTER APRN ADMIT DATE: 06/02/16 Draft Date of Exam:06/01/16 CHEST 1 VIEW, AP/PA ONLY INDICATION: Chest pain. FINDINGS: There is minimal linear density in the left lung base with blunting of left costophrenic angle. Left lung is otherwise clear. The right lung is clear. Right costophrenic angle is sharp. The heart is not enlarged. No hilar adenopathy. No pneumothorax. IMPRESSION: Finding consistent with small left basilar pleural effusion with left basilar atelectasis and/or infiltrate. Dictated on workstation # [id number] Dict: 06/02/16 0658 Trans: 06/02/16 0702 [facility] [id number] Interpreted by: KENRICK SEO MD Electronically signed by: ECG Impression ECG Initial ECG Rhythm: Normal Sinus A/P-Cardiology Assessment/Admission Diagnosis Ac pericarditis (possibly parapneumonic) Echo of 06/02/16 shows LVEF 60%, normal PASP, trivial to mild MR and TR, a small amount of pericardial fluid that does not appear to be of hemodynamic significance LLL Pneumonia - being managed by the medical services Episode of pericarditis and mild myocarditis in early July 2015 Echo of 07-31-15 showed no pericard eff, normal global left ventricular systolic function with an ejection fraction of 60%; trivial, mitral and tricuspid regurgitation; pulmonary artery systolic pressure is estimated to be 25 to 30 mmHg; no evidence of any significant valvular stenosis. Cardiac cath of 07-31-15 showed relatively mild coronary artery disease consisting of 30 to 40% midvessel stenosis of the left anterior descending and approximately 30% midvessel stenosis of the right coronary arteries; normal global left ventricular systolic function with an ejection fraction of approximately 60%; normal left ventricular end diastolic pressure; and normal regional wall motion. Chronic tobacco use - cessation advised Chronic anxiety Occ use of marijuana - cessation advised H/O ETOH use Fatty liver seen on CT of 06-01-16 Discussion and Recomendations Pericardial effusion seen on CT of the chest on 06-01-16. Possible pericarditis. We will do an echocardiogram to further evaluate. Continue NSAIDs. Pneumonia treatment per medical services. Anti-hypertensive has been restarted already. Continue current medication regimen. Smoking cessation advise. Further recommendations will be based on his hospital course. We would like to thank the Hospitalist service for this consult. This consult is being scribed by Samreen Luna APRN on behalf of Dr. Choi after discussion regarding plan of care. Clinical Quality Measures AMI/AHF: ASA po Prior to arrival: Yes DVT/VTE Risk/Contraindication: Risk Factor Score Per Nursin RFS Level Per Nursing on Admit: 2=Moderate Physician Assessment Physician Assessment Lungs: good air entry, but diminished at the bases, more so on the L base Cor: reg without significant gallop or murmur or rub A&R * As documented in our note above that I updated at the time of this writing * Will add colchicine to current regimen of ibuprofen for treatment of pericarditis * Pneumonia management with the Medical Service * Continue to monitor labs * I spoke with him and answered questions KEAGAN LUNA Jun 02, 2016 09:57 KIKE CHOI MD FACP FAC CCDS Jun 02, 2016 12:45 AMI/AHF: ASA po Prior to arrival: Yes DVT/VTE Risk/Contraindication: Risk Factor Score Per Nursin RFS Level Per Nursing on Admit: 2=Moderate KEAGAN LUNA Jun 02, 2016 09:57
[2016-06-02] MEDS: NICOTINE 21 MG (NICODERM) PATCH TD SCH (11:37)
--- NOTE | 2016-06-02 11:58 | History & Physical-Hospitalist ---
HPI History of Present Illness: HPI/Chief Complaint CC: Chest pain HPI: This is a 50yoWM pt of Dr. Zhu's that presented to ER with chest pain, obtained CT scan to rule out PE and it was negative but LLL pneumonia was revealed so placed pt on Levaquin, but pericardial effusion required Cardiology consultation. WBC 15.7 on admission, this morning 13.9. Creat 0.79. ordnance handler: RN states that pt requested a nicotine patch and SCDs. Patient Interview: Pt states that he had an echocardiogram, and met with Dr. Choi last year for a similar hospitalization. Pt was previously placed on low dosage statin and BP meds. Pt states that pain is much improved. Dr. Nath informs pt of pneumonia findings and treatment plan. Physical exam stable. Dr. Zhu is PCP. Pt works at [employer]. Pt is not receiving breathing treatments. Pt previously fractured left ribs in [place] during the past year. Scribed by Heriberto Malone under the direct supervision of Dr. Nath. Source: patient Exam Limitations: no limitations Date Seen 06/02/16 Attending Physician Jewels Nath DO PCP No,Local Physician Referring Physician Date of Admission Jun 02, 2016 at 00:47 Home Medications & Allergies Home Medications Reviewed patient Home Medication Reconciliation Form Allergies Coded Allergies: No Known Drug Allergies (Unverified , 07/30/15) Past Mhnwqeb-Gydjxo-Ebsbct Hx Patient Social History Marrital Status: single Employed/Student: employed ([employer]) Alcohol Use: Regular Use Recreational Drug Use: No Smoking Status: Current Everyday Smoker Type Used: Cigarettes Physical Abuse Screen: No Sexual Abuse: No Recent Foreign Travel: No Contact w/other who traveled: No Recent Hopitalizations: No Recent Infectious Disease Expo: No Seasonal Allergies Seasonal Allergies: No Surgeries HX Surgeries: Yes Surgeries: Cardiac, Orthopedic Respiratory Hx Respiratory Disorders: Yes (tobaccoism) Cardiovascular Hx Cardiovascular Disorders: Yes Cardiac Disorders: Coronary Artery Disease, Hypertension Neurological Hx Neurological Disorders: No Reproductive System Hx Reproductive Disorders: No Sexually Transmitted Disease: No HIV/AIDS: No Genitourinary Hx Genitourinary Disorders: No Gastrointestinal Hx Gastrointestinal Disorders: No Musculoskeletal Hx Musculoskeletal Disorders: No Endocrine Hx Endocrine Disorders: No HEENT HX ENT Disorders: No Cancer Hx Cancer: No Psychosocial Hx Psychiatric Problems: Yes (daily alcohol use) Behavioral Health Disorders: Anxiety Integumentary HX Skin/Integumentary Disorder: No Blood Transfusions Hx Blood Disorders: No Adverse Reaction to a Blood Tr: No Family Medical History Significant Family History: No Pertinent Family Hx Family Hx: FH: cirrhosis Review of Systems Constitutional: see HPI dizziness fever EENTM: no symptoms reported Respiratory: short of breath Cardiovascular: chest pain Gastrointestinal: no symptoms reported Genitourinary: no symptoms reported Musculoskeletal: no symptoms reported Skin: no symptoms reported Psychiatric/Neurological: No Symptoms Reported Physical Exam Physical Exam Vital Signs Vital Sign - Last 12Hours 06/01/16 22:33 Temp 97.4 Pulse 100 Resp 24 B/P 143/102 Pulse Ox 96 O2 Delivery Room Air Capillary Refill : Less Than 3 Seconds General Appearance: No Apparent Distress WD/WN Chronically ill Eyes: Bilateral Eye Normal Inspection, Bilateral Eye PERRL HEENT: PERRL/EOMI Normal ENT Inspection Pharynx Normal Neck: Full Range of Motion Normal Inspection Non Tender Supple Carotid Bruit Respiratory: Chest Non Tender Lungs Clear No Accessory Muscle Use No Respiratory Distress Crackles Decreased Breath Sounds Cardiovascular: Regular Rate, Rhythm No Edema No Gallop No JVD No Murmur Normal Peripheral Pulses Gastrointestinal: Normal Bowel Sounds No Organomegaly No Pulsatile Mass Non Tender Soft Back: Normal Inspection No CVA Tenderness No Vertebral Tenderness Extremity: Normal Capillary Refill Normal Inspection Normal Range of Motion Non Tender No Calf Tenderness No Pedal Edema Neurologic/Psychiatric: Alert Oriented x3 No Motor/Sensory Deficits Normal Mood/Affect Skin: Normal Color Warm/Dry Lymphatic: No Adenopathy Results Results/Procedures Lab Laboratory Tests 06/01/16 22:40 06/02/16 04:33 Assessment/Plan Admission Diagnosis Assessment: Chest pain due to pericarditis with left sided pneumonia Smoker History of pericarditis in the past Assessment and Plan Plan: Ambulation IS Breathing treatments Nicotine patch SCDs Consult Drs. Rabago and Jimbo. Clinical Quality Measures AMI/AHF: ASA po Prior to arrival: Yes DVT/VTE Risk/Contraindication: Risk Factor Score Per Nursin RFS Level Per Nursing on Admit: 2=Moderate JEWELS NATH DO Jun 02, 2016 11:58
[2016-06-02 12:00] VITALS: BP 120/82
--- NOTE | 2016-06-02 13:42 | Pulmonary Consultation ---
History of Present Illness History of Present Illness Date of Consultation 06/02/16 13:39 Date of Admission History of Present Illness 50yo presented secondary to progressive dyspnea and CP radiating to back and jaw over the last few days. No fever, chills, nausea, vomiting. I am consulted for pulmonary management. Allergies and Home Medications Allergies Coded Allergies: No Known Drug Allergies (Unverified , 07/30/15) Home Medications Amlodipine Besylate 2.5 Mg Tablet, 2.5 MG PO BID, #30 Ref 1 Prescribed by: KEAGAN GANT on 06/03/16 1037 Colchicine 0.6 Mg Tablet, 0.6 MG PO BIDPC, #28 Ref 2 Prescribed by: KEAGAN GANT on 06/03/16 1037 Hydrocodone/Acetaminophen 1 Each Tablet, 1 EACH PO Q6H PRN for PAIN, #15 Prescribed by: RACHANA NATH on 06/03/16 1120 Ibuprofen 600 Mg Tablet, 600 MG PO TIDPC, #42 Ref 2 Prescribed by: KEAGAN GANT on 06/03/16 1037 Levofloxacin 750 Mg Tablet, 750 MG PO DAILY, #5 Prescribed by: RACHANA NATH on 06/03/16 1120 Lorazepam 0.5 Mg Tablet, 0.5 MG PO DAILY PRN for ANXIETY, (Reported) Past Ysfrikc-Vefrkf-Bnzgap Hx Patient Social History Alcohol Use: Regular Use Recreational Drug Use: No Smoking Status: Current Everyday Smoker Type Used: Cigarettes Recent Foreign Travel: No Contact w/Someone Who Travel: No Recent Infectious Disease Expo: No Recent Hopitalizations: No Physical Abuse Screen: No Sexual Abuse: No Seasonal Allergies Seasonal Allergies: No Surgeries HX Surgeries: Yes Surgeries: Cardiac, Orthopedic Respiratory Hx Respiratory Disorders: Yes (tobaccoism) Cardiovascular Hx Cardiac Disorders: Yes Cardiac Disorders: Coronary Artery Disease, Hypertension Neurological Hx Neurological Disorders: No Reproductive System Hx Reproductive Disorders: No Sexually Transmitted Disease: No HIV/AIDS: No Genitourinary Hx Genitourinary Disorders: No Gastrointestinal Hx Gastrointestinal Disorders: No Musculoskeletal Hx Musculoskeletal Disorders: No Endocrine Hx Endocrine Disorders: No HEENT HX ENT Disorders: No Cancer Hx Cancer: No Psychosocial Hx Psychiatric Problems: Yes (daily alcohol use) Behavioral Health Disorders: Anxiety Integumentary HX Skin/Integumentary Disorder: No Blood Transfusions Hx Blood Disorders: No Adverse Reaction to a Blood Tr: No Family Medical History Significant Family History: No Pertinent Family Hx Family Medial History: FH: cirrhosis Exam Exam Vital Signs Date Time Temp Pulse Resp B/P Pulse Ox O2 Delivery O2 Flow Rate FiO2 06/02/16 08:00 98.2 79 20 121/78 94 Room Air 06/02/16 07:00 75 06/02/16 04:39 97.7 81 20 116/71 97 Room Air 06/02/16 02:50 97 06/02/16 01:58 82 06/02/16 01:55 Room Air 06/02/16 01:37 98.4 85 18 125/77 97 Room Air 06/02/16 01:22 84 16 95 06/01/16 22:49 94 Room Air 06/01/16 22:49 Room Air 06/01/16 22:33 97.4 100 24 143/102 96 Room Air I & O 06/02/16 07:00 Intake Total 1404 ml Balance 1404 ml General Appearance: No Apparent Distress, WD/WN, Chronically ill HEENT: PERRL/EOMI, Normal ENT Inspection, Pharynx Normal Neck: Full Range of Motion, Normal Inspection, Non Tender, Supple, Carotid Bruit Respiratory: Chest Non Tender, Lungs Clear, No Accessory Muscle Use, No Respiratory Distress, Crackles, Decreased Breath Sounds Cardiovascular: Regular Rate, Rhythm, No Edema, No Gallop, No JVD, No Murmur, Normal Peripheral Pulses Capillary Refill: Less Than 3 Seconds Extremity: Normal Capillary Refill, Normal Inspection, Normal Range of Motion, Non Tender, No Calf Tenderness, No Pedal Edema Neurologic/Psychiatric: Alert, Oriented x3, No Motor/Sensory Deficits, Normal Mood/Affect Skin: Normal Color, Warm/Dry Lymphatic: No Adenopathy Results Lab Laboratory Tests 06/01/16 22:40 06/02/16 04:33 Assessment/Plan Assessment/Plan Pericarditis Pneumonia -Levaquin -SVNS, oxygen tobacco use -Education Clinical Quality Measures AMI/AHF: ASA po Prior to arrival: Yes DVT/VTE Risk/Contraindication: Risk Factor Score Per Nursin RFS Level Per Nursing on Admit: 2=Moderate OLGA CRONIN DO Jun 02, 2016 13:42
[2016-06-02] MEDS ORDERED: CATHETER FLUSH 10 ML SYR IV PRN (14:00)
[2016-06-02] MEDS: RT-ALBUTEROL SULF 2.5 MG/3 ML PRE-MIX VIAL INH SCH ×2 (15:47→21:37)
[2016-06-02 16:12] VITALS: BP 132/80
[2016-06-02] MEDS: COLCHICINE 0.6 MG (COLCRYS) TABLET PO SCH (18:49)
[2016-06-02 20:21] VITALS: BP 134/86
[2016-06-02] MEDS ORDERED: SIMvastatin 10 MG (ZOCOR) TAB PO SCH (21:00)
[2016-06-03] VITALS: BP 126/74
[2016-06-03] MEDS ORDERED: LEVOFLOXACIN 750 MG/D5W 150 ML PRE-MIX IV ONE
[2016-06-03] MEDS: RT-ALBUTEROL SULF 2.5 MG/3 ML PRE-MIX VIAL INH SCH ×2 (02:28→06:56)
[2016-06-03 04:00] VITALS: BP 129/83
[2016-06-03 06:13] LABS: BASOPHILS % (AUTO) 0 % (0-10); EOSINOPHILS # (AUTO) 0.1 10^3/uL (0.0-0.3); EOSINOPHILS % (AUTO) 1 % (0-10); LYMPHOCYTES % (AUTO) 19 % (12-44); MEAN CORPUSCULAR HEMOGLOBIN 33 PG (25-34); MEAN CORPUSCULAR HGB CONC 34 G/DL (32-36); MEAN CORPUSCULAR VOLUME 98 FL (80-99); MEAN PLATELET VOLUME 9.4 FL (7.4-10.4); MONOCYTES % (AUTO) 9 % (0-12); NEUTROPHILS # (AUTO) 7.3 X 10^3 (1.8-7.8); NEUTROPHILS % (AUTO) 70 % (42-75); PLATELET COUNT 340 10^3/uL (130-400); RED BLOOD COUNT 4.02 10^6/uL (4.35-5.85); RED CELL DISTRIBUTION WIDTH 13.1 % (10.0-14.5); WHITE BLOOD COUNT 10.4 10^3/uL (4.3-11.0)
[2016-06-03] MEDS: THIAMINE 100 MG (VITAMIN B-1) TAB PO SCH (06:27)
[2016-06-03] MEDS: MULTIVIT W/MINERALS TAB (THERAGRAN M) PO SCH (06:27)
[2016-06-03] MEDS: PANTOPRAZOLE 40 MG (PROTONIX) TAB PO SCH (06:27)
[2016-06-03 06:33] LABS: ALANINE AMINOTRANSFERASE 29 U/L (0-55); ALBUMIN 3.7 G/DL (3.2-4.5); ANION GAP 10 MMOL/L (5-14); ASPARTATE AMINO TRANSFERASE 25 U/L (5-34); BILIRUBIN,TOTAL 0.5 MG/DL (0.1-1.0); BLOOD UREA NITROGEN 8 MG/DL (7-18); BUN/CREATININE RATIO 10; CALCIUM 9.2 MG/DL (8.5-10.1); CARBON DIOXIDE 24 MMOL/L (21-32); CHLORIDE 107 MMOL/L (98-107); CREATININE SERUM 0.83 MG/DL (0.60-1.30); GFR ESTIMATED > 60; GLUCOSE 104 MG/DL (70-105); SODIUM 141 MMOL/L (135-145); TOTAL PROTEIN 6.8 G/DL (6.4-8.2)
[2016-06-03] MEDS ORDERED: LORazepam INJ 2 MG/ML (ATIVAN) VIAL IM/IV PRN (07:30)
[2016-06-03] MEDS ORDERED: LORazepam INJ 2 MG/ML (ATIVAN) VIAL IV PRN (07:30)
[2016-06-03] MEDS ORDERED: LORazepam 1 MG (ATIVAN) TAB PO PRN (07:30)
--- NOTE | 2016-06-03 07:34 | Diagnostic Imaging Report ---
INDICATION: Chest pain. PA and lateral views of the chest are obtained. Comparison is made study of 06/01/2016. FINDINGS: Overall heart size is within normal limits. Pulmonary vascularity is at the upper limits of normal. There is mild bilateral perihilar atelectasis with left basilar atelectasis and/or pneumonitis associated with mild left pleural fluid. No pneumothorax is seen. IMPRESSION: Bilateral perihilar atelectasis with left basilar atelectasis and/or pneumonitis associated with mild left pleural fluid. Dictated by: Dictated on workstation # [id number]
--- NOTE | 2016-06-03 07:39 | ECHOCARDIOGRAPHY REPORT ---
PROCEDURE PHYSICIAN: FAZAL CHOI DATE OF PROCEDURE: 06/02/2016 TWO DIMENSIONAL ECHOCARDIOGRAM REPORT PRIMARY PHYSICIAN: Dr. De Souza OTHER PHYSICIAN: REFERRING PHYSICIAN: ORDERING PHYSICIAN: Dr. Choi INDICATION FOR THE PROCEDURE: 1. Chest pain. 2. Pericardial effusion. MEASUREMENTS DERIVED VALUES LV DIAMETER (LAX) NORMALS NORMALS Diastolic 4.5 (3.6-5.2) Eject. Fract. (60%+/-6%) Systolic (2.3-3.9) Diastolic Vol. % Shortening (0.22-0.42) Systolic Vol. Aortic Root 3.9 IVS THICKNESS Diastolic 1.2 (0.6-1.1) LVPW THICKNESS Diastolic 1.1 (0.6-1.1) LA DIAMETER Systolic 3.1 (2.1-3.7) DESCRIPTION: Two-dimensional echocardiography showed normal global left ventricular systolic function with normal regional wall motion. Aortic, mitral and tricuspid valve leaflets show good leaflet excursion. There is a small amount of pericardial fluid which does not appear to be of hemodynamic significance. Doppler imaging shows trivial tricuspid regurgitation. Pulmonary artery systolic pressure is estimated to be approximately 25 mmHg. The aortic valve appears to be trileaflet. There is no Doppler evidence of any significant valvular stenosis. There is trivial to mild mitral regurgitation. There is no evidence of any significant intracardiac shunt on this transthoracic echocardiographic study. CONCLUSIONS: 1. Normal global left ventricular systolic function with an ejection fraction of 60 to 65%. 2. Small amount of pericardial fluid which does not appear to be of hemodynamic significance. 3. Trivial to mild mitral and tricuspid to mild mitral regurgitation. 4. Pulmonary artery systolic pressure is estimated to be approximately 25 mmHg. 5. No evidence of any significant valvular stenosis on this study. Job ID: [id number] Dictated Date: 06/02/2016 12:19:31 Meeting/Event Planner Date: 06/03/2016 07:31:56 / richard
[2016-06-03 08:00] VITALS: BP 132/79
[2016-06-03] MEDS: amLODIPine 2.5MG (NORVASC) TAB PO SCH (08:31)
[2016-06-03] MEDS: MAGNESIUM OXIDE (MAG-OX)400 MG TAB PO SCH (08:31)
[2016-06-03] MEDS: FOLIC ACID 1 MG TAB PO SCH (08:31)
[2016-06-03] MEDS: ASPIRIN 81 MG CHEW (CHILDREN'S ASA) PO SCH (08:31)
[2016-06-03] MEDS: NICOTINE 21 MG (NICODERM) PATCH TD SCH (08:31)
[2016-06-03] MEDS: COLCHICINE 0.6 MG (COLCRYS) TABLET PO SCH (08:32)
[2016-06-03] MEDS: IBUPROFEN 600 MG (MOTRIN) TAB PO SCH (08:32)
[2016-06-03] MEDS ORDERED: COLC0.6T53 PO (10:37)
[2016-06-03] MEDS ORDERED: AMLO2.5T PO (10:37)
[2016-06-03] MEDS ORDERED: IBUP-1773 PO (10:37)
--- NOTE | 2016-06-03 10:50 | Progress Note-Cardiology ---
Cardiology SOAP Progress Note Subjective: He states he feels much better today and wishes to go home. No cp or palp or shortness of breath or syncope or swelling Objective: I&O/Vital Signs Vital Sign - Last 12Hours 06/03/16 06/03/16 06/03/16 06/03/16 00:00 01:00 04:00 06:56 Temp 99.2 97.0 Pulse 90 77 73 Resp 20 16 B/P 126/74 129/83 Pulse Ox 95 97 95 O2 Delivery Room Air 06/03/16 08:00 Temp 97.6 Pulse 93 Resp 20 B/P 132/79 Pulse Ox 96 O2 Delivery Room Air Intake and Output 06/03/16 00:00 Intake Total 2020 ml Balance 2020 ml Weight (Pounds): 166 Weight (Ounces): 3.0 Weight (Calculated Kilograms): 75.223507 Constitutional: appears stated ageNo apparent distress, well-developed well- nourished Respiratory: No accessory muscle use, other (diminished bases bilat; poor inspiratory effort d/t c/o discomfort with deep breathing) Cardiovascular: regular rate-rhythmNo JVD, S1 and S2 Gastrointestional: No tender, soft roundNo spleenomegaly Extremities: No clubbing, No cyanosis, No significant edema Neurologic/Psychiatric: alert oriented x 3 power is 5/5 both on sides Skin: No rash, No ulcerations Results/Procedures: Labs Laboratory Tests 06/03/16 05:35: Alanine Aminotransferase (ALT/SGPT) 29, Albumin 3.7, Alkaline Phosphatase 82, Anion Gap 10, Aspartate Amino Transf (AST/SGOT) 25, BUN/Creatinine Ratio 10, Basophils # (Auto) 0.0, Basophils (%) (Auto) 0, Blood Urea Nitrogen 8, Calcium Level 9.2, Carbon Dioxide Level 24, Chloride Level 107, Creatinine 0.83, Eosinophils # (Auto) 0.1, Eosinophils (%) (Auto) 1, Estimat Glomerular Filtration Rate > 60, Glucose Level 104, Hematocrit 39L, Hemoglobin 13.4, Lymphocytes # (Auto) 2.0, Lymphocytes (%) (Auto) 19, Mean Corpuscular Hemoglobin 33, Mean Corpuscular Hemoglobin Concent 34, Mean Corpuscular Volume 98, Mean Platelet Volume 9.4, Monocytes # (Auto) 1.0, Monocytes (%) (Auto) 9, Neutrophils # (Auto) 7.3, Neutrophils (%) (Auto) 70, Platelet Count 340, Potassium Level 4.0, Red Blood Count 4.02L, Red Cell Distribution Width 13.1, Sodium Level 141, Total Bilirubin 0.5, Total Protein 6.8, White Blood Count 10.4 Microbiology 06/02/16 Blood Culture - Preliminary, Resulted No growth A/P: Assessment: Ac pericarditis (possibly parapneumonic) Echo of 06/02/16 shows LVEF 60%, normal PASP, trivial to mild MR and TR, a small amount of pericardial fluid that does not appear to be of hemodynamic significance LLL Pneumonia - being managed by the medical services Episode of pericarditis and mild myocarditis in early July 2015 Echo of 07-31-15 showed no pericard eff, normal global left ventricular systolic function with an ejection fraction of 60%; trivial, mitral and tricuspid regurgitation; pulmonary artery systolic pressure is estimated to be 25 to 30 mmHg; no evidence of any significant valvular stenosis. Cardiac cath of 07-31-15 showed relatively mild coronary artery disease consisting of 30 to 40% midvessel stenosis of the left anterior descending and approximately 30% midvessel stenosis of the right coronary arteries; normal global left ventricular systolic function with an ejection fraction of approximately 60%; normal left ventricular end diastolic pressure; and normal regional wall motion. Chronic tobacco use - cessation advised Chronic anxiety Occ use of marijuana - cessation advised H/O ETOH use Fatty liver seen on CT of 06-01-16 Plan: * Antibiotic therapy as directed by Dr De Souza * Ibuprofen and colchicine for pericarditis * Close outpatient f/u * I had a detailed discussion with him and advised outpatient f/u Clinical Quality Measures AMI/AHF: ASA po Prior to arrival: Yes FAZAL VELÁZQUEZ MD FACP FAC CCDS Jun 03, 2016 10:50
--- NOTE | 2016-06-03 10:53 | Pulmonary Progress Note ---
Subjective Subjective/Events-last exam No complications noted. Exam Exam Vital Signs Date Time Temp Pulse Resp B/P Pulse Ox O2 Delivery O2 Flow Rate FiO2 06/03/16 08:00 97.6 93 20 132/79 96 Room Air 06/03/16 06:56 95 06/03/16 04:00 97.0 73 16 129/83 97 Room Air 06/03/16 01:00 77 06/03/16 00:00 99.2 90 20 126/74 95 06/02/16 21:37 93 06/02/16 20:21 99.0 96 18 134/86 97 Room Air 06/02/16 20:00 97 Room Air 06/02/16 19:00 88 06/02/16 16:12 98.5 85 20 132/80 99 Room Air 06/02/16 15:48 94 06/02/16 13:00 82 06/02/16 12:00 98.1 82 20 120/82 95 Room Air I & O 06/03/16 07:00 Intake Total 2720 ml Balance 2720 ml General Appearance: No Apparent Distress, WD/WN, Chronically ill HEENT: PERRL/EOMI, Normal ENT Inspection, Pharynx Normal Neck: Full Range of Motion, Normal Inspection, Non Tender, Supple, Carotid Bruit Respiratory: Chest Non Tender, Lungs Clear, No Accessory Muscle Use, No Respiratory Distress, Crackles, Decreased Breath Sounds Cardiovascular: Regular Rate, Rhythm, No Edema, No Gallop, No JVD, No Murmur, Normal Peripheral Pulses Capillary Refill: Less Than 3 Seconds Extremity: Normal Capillary Refill, Normal Inspection, Normal Range of Motion, Non Tender, No Calf Tenderness, No Pedal Edema Neurologic/Psychiatric: Alert, Oriented x3, No Motor/Sensory Deficits, Normal Mood/Affect Skin: Normal Color, Warm/Dry Lymphatic: No Adenopathy Results Lab Laboratory Tests 06/01/16 22:40 06/02/16 04:33 06/03/16 05:35 Assessment/Plan Assessment/Plan Pericarditis and small pleural effusion -r/o lupus Check TITO, ESR, CRP Pneumonia -Levaquin -SVNS, oxygen tobacco use -Education Clinical Quality Measures AMI/AHF: ASA po Prior to arrival: Yes DVT/VTE Risk/Contraindication: Risk Factor Score Per Nursin RFS Level Per Nursing on Admit: 2=Moderate OLGA CRONIN DO Jun 03, 2016 10:53
--- NOTE | 2016-06-03 11:10 | Discharge Summary-Hospitalist ---
Diagnosis/Chief Complaint Date of Admission Jun 02, 2016 at 00:47 Date of Discharge Admission Diagnosis Assessment: Chest pain due to pericarditis with left sided pneumonia Smoker History of pericarditis in the past Discharge Diagnosis Assessment: Chest pain due to pericarditis with left sided pneumonia Smoker History of pericarditis in the past Plan: Ambulation IS Breathing treatments Nicotine patch SCDs Consult Drs. Rabago and Jimbo. Reason Hospital Visit/Course CC: Chest pain HPI: This is a 50yoWM pt of Dr. Zhu's that presented to ER with chest pain, obtained CT scan to rule out PE and it was negative but LLL pneumonia was revealed so placed pt on Levaquin, but pericardial effusion required Cardiology consultation. WBC 15.7 on admission, this morning 13.9. Creat 0.79. 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 Patient Interview: Pt states that he had an echocardiogram, and met with Dr. Choi last year for a similar hospitalization. Pt was previously placed on low dosage statin and BP meds. Pt states that pain is much improved. Dr. Nath informs pt of pneumonia findings and treatment plan. Physical exam stable. Dr. Zhu is PCP. Pt works at [employer]. Pt is not receiving breathing treatments. Pt previously fractured left ribs in [place] during the past year. Scribed by Heriberto Malone under the direct supervision of Dr. Nath. Notes from 06/03/2016: Chart Review: WBC normal 10.4 No fever CMP normal CXR left infiltrate stable Patient Interview: Pt states that his pain is improved. Physical exam stable. Pt uses [facility] pharmacy. No fever, vital signs stable, pleasant, much improved Regular rate and rhythm, clear to auscultation bilaterally and much improved rales in the bases No edema Plan: Pain pills Levaquin 750 for 5 more days DC with close follow-up with Dr. Zhu and Dr. Choi. Scribed by Heriberto Malone under the direct supervision of Dr. Nath. Discharge Summary Discharge Physical Examination Allergies: Coded Allergies: No Known Drug Allergies (Unverified , 07/30/15) Vitals & I&Os Vital Signs Date Time Temp Pulse Resp B/P Pulse Ox O2 Delivery O2 Flow Rate FiO2 06/03/16 08:00 97.6 93 20 132/79 96 Room Air Hospital Course Labs (last 24 hrs) Laboratory Tests 06/03/16 05:35: Alanine Aminotransferase (ALT/SGPT) 29, Albumin 3.7, Alkaline Phosphatase 82, Anion Gap 10, Aspartate Amino Transf (AST/SGOT) 25, BUN/Creatinine Ratio 10, Basophils # (Auto) 0.0, Basophils (%) (Auto) 0, Blood Urea Nitrogen 8, C- Reactive Protein High Sensitivity 12.75H, Calcium Level 9.2, Carbon Dioxide Level 24, Chloride Level 107, Creatinine 0.83, Eosinophils # (Auto) 0.1, Eosinophils (%) (Auto) 1, Erythrocyte Sedimentation Rate 48H, Estimat Glomerular Filtration Rate > 60, Glucose Level 104, Hematocrit 39L, Hemoglobin 13.4, Lymphocytes # (Auto) 2.0, Lymphocytes (%) (Auto) 19, Mean Corpuscular Hemoglobin 33, Mean Corpuscular Hemoglobin Concent 34, Mean Corpuscular Volume 98, Mean Platelet Volume 9.4, Monocytes # (Auto) 1.0, Monocytes (%) (Auto) 9, Neutrophils # (Auto) 7.3, Neutrophils (%) (Auto) 70, Platelet Count 340, Potassium Level 4.0, Red Blood Count 4.02L, Red Cell Distribution Width 13.1, Sodium Level 141, Total Bilirubin 0.5, Total Protein 6.8, White Blood Count 10.4 Microbiology 06/02/16 Blood Culture - Preliminary, Resulted No growth Pending Labs Laboratory Tests 06/03/16 05:35: Alanine Aminotransferase (ALT/SGPT) 29, Albumin 3.7, Alkaline Phosphatase 82, Anion Gap 10, Anti-Nuclear Antibody Screen [Pending], Aspartate Amino Transf ( AST/SGOT) 25, BUN/Creatinine Ratio 10, Basophils # (Auto) 0.0, Basophils (%) ( Auto) 0, Blood Urea Nitrogen 8, C-Reactive Protein High Sensitivity 12.75, Calcium Level 9.2, Carbon Dioxide Level 24, Chloride Level 107, Creatinine 0.83 , Eosinophils # (Auto) 0.1, Eosinophils (%) (Auto) 1, Erythrocyte Sedimentation Rate 48, Estimat Glomerular Filtration Rate > 60, Glucose Level 104, Hematocrit 39, Hemoglobin 13.4, Lymphocytes # (Auto) 2.0, Lymphocytes (%) (Auto) 19, Mean Corpuscular Hemoglobin 33, Mean Corpuscular Hemoglobin Concent 34, Mean Corpuscular Volume 98, Mean Platelet Volume 9.4, Monocytes # (Auto) 1.0, Monocytes (%) (Auto) 9, Neutrophils # (Auto) 7.3, Neutrophils (%) (Auto) 70, Platelet Count 340, Potassium Level 4.0, Red Blood Count 4.02, Red Cell Distribution Width 13.1, Sodium Level 141, Total Bilirubin 0.5, Total Protein 6.8, White Blood Count 10.4 Discharge Home Medications: Active Scripts Active Hydrocodon -Acetaminophen 5-325 (Hydrocodone/Acetaminophen) 1 Each Tablet 1 Each PO Q6H PRN Levaquin (Levofloxacin) 750 Mg Tablet 750 Mg PO DAILY Amlodipine Besylate 2.5 Mg Tablet 2.5 Mg PO BID Ibuprofen 600 Mg Tablet 600 Mg PO TIDPC Colcrys (Colchicine) 0.6 Mg Tablet 0.6 Mg PO BIDPC Reported Ibuprofen 200 Mg Tablet 600 Mg PO Q8H PRN Ativan (Lorazepam) 0.5 Mg Tablet 0.5 Mg PO DAILY PRN Instructions to patient/family Please see electonic discharge instructions given to patient. Clinical Quality Measures AMI/AHF: ASA po Prior to arrival: Yes DVT/VTE Risk/Contraindication: Risk Factor Score Per Nursin RFS Level Per Nursing on Admit: 2=Moderate RACHANA NATH DO Jun 03, 2016 11:10
[2016-06-03] MEDS ORDERED: HYDR-3812 PO (11:20)
[2016-06-03] MEDS ORDERED: LEVO750T9 PO (11:20)
--- NOTE | 2016-06-03 11:22 | Discharge Instructions ---
Discharge Instructions Discharge Medications New, Converted or Re-Newed RX: Transmitted to Pharmacy New Medications: Hydrocodone/Acetaminophen (Hydrocodon -Acetaminophen 5-325) 1 Each Tablet 1 EACH PO Q6H PRN PAIN #15 TAB Levofloxacin (Levaquin) 750 Mg Tablet 750 MG PO DAILY #5 TAB Amlodipine Besylate (Amlodipine Besylate) 2.5 Mg Tablet 2.5 MG PO BID #30 Ref 1 TAB Colchicine (Colcrys) 0.6 Mg Tablet 0.6 MG PO BIDPC #28 Ref 2 TAB Ibuprofen (Ibuprofen) 600 Mg Tablet 600 MG PO TIDPC #42 Ref 2 TAB Continued Medications: Lorazepam (Ativan) 0.5 Mg Tablet 0.5 MG PO DAILY PRN ANXIETY TAB Discontinued Medications: Ibuprofen (Ibuprofen) 200 Mg Tablet 600 MG PO Q8H PRN INFLAMMATION TAB Patient Instructions Goal/Follow Up Appt: Dr Zhu in [address] Choi as scheduled Activity & Diet Discharge Diet: No Restrictions Activity as Tolerated: Yes RACHANA NATH DO Jun 03, 2016 11:22
[2016-06-03 12:00] VITALS: BP 128/76
[2016-06-04] MEDS ORDERED: LEVOFLOXACIN 750 MG TAB (LEVAQUIN) PO SCH (11:00)
== END 2016-06-03 14:00 | disposition home or self-care (01) | DRG 194 ==
LOC: EDUNIT# 22:18 → ER 22:20 → 4TH 06-02 00:47
PROVIDERS: ADMIT Internal Medicine; ATTEND Internal Medicine
DX: J18.9 Pneumonia, unspecified organism (principal); I30.9 Acute pericarditis, unspecified; I25.10 Atherosclerotic heart disease of native coronary artery without angina pectoris; I10 Essential (primary) hypertension; F41.9 Anxiety disorder, unspecified; F12.90 Cannabis use, unspecified, uncomplicated; F17.210 Nicotine dependence, cigarettes, uncomplicated; F10.20 Alcohol dependence, uncomplicated
CPT/HCPCS: 36415; 71010; 71020; 71275; 80053; 80061; 80320; 83605; 83735; 83874; 84484; 85007; 85025; 85027; 85610; 85652; 85730; 86038; 86141; 87040; 93005; 93041; 93306; 94640; 94664; 94760; 96361; 96365; 96375

== ENCOUNTER → 2019-02-02 | Outpatient (CLI) | payer BC ==
[~2019-02-02] MED LIST changes: +ACHD5005 PO; -AMLO2.5T PO; +AMLO2.5T4 PO; +CENTRUM CHEWAB1 EACH PO; +COLC0.6T53 PO; -FOLI1TAB9 PO; +IBUP-2055 PO; +LEVO750T9 PO; +LORA-404 PO; -NCT21TD TD; +NICO-588 TD
--- NOTE | 2019-02-02 10:04 | Diagnostic Imaging Report ---
Clinical indication: Patient states for a while now that after five hours of work he gets a sharp stabbing pain right under the right shoulder blade that goes from his back through to his chest. Exam: X-ray of the thoracic spine, three views including swimmer's view. Comparison: Chest x-ray two views dated 06/03/2016. Findings: There is limited visualization of the upper thoracic spinal on lateral view due to overlapping anatomical structures. There is no acute thoracic spine fracture or dislocation. There is slight right curvature of the mid to upper thoracic spine again seen. There are small spurs scattered throughout the thoracic spine. 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 Dictated by: Dictated on workstation # [id number]
== END ==
LOC: RAD 08:54
PROVIDERS: ATTEND Family Medicine
DX: M47.814 Spondylosis without myelopathy or radiculopathy, thoracic region (principal); M54.5 Low back pain; G89.29 Other chronic pain
CPT/HCPCS: 72072